=== PATIENT | female | born 1985 | race Caucasian/White ===

== ENCOUNTER 2016-09-01 22:35 | Observation (INO) | payer MEDICARE, MEDICAID ==
[~2016-09-01] VITALS: Ht 172.7 cm; Wt 71.7 kg
[~2016-09-01 22:35] MED LIST: ARIP2TAB3 PO; ESCI5TAB PO
[2016-09-01 23:09] LABS: CLARITY URINE CLOUDY (CLEAR); COLOR URINE DARK YELLOW (YELLOW); GLUCOSE URINE NEGATIVE (NEGATIVE); KETONES URINE 4+ (NEGATIVE); LEUKOCYTE ESTERASE URINE 1+ (NEGATIVE); NITRITE URINE POSITIVE (NEGATIVE); OCCULT BLOOD URINE NEGATIVE (NEGATIVE); PH URINE 5.5 (4.5-8.0); PROTEIN URINE NEGATIVE (NEGATIVE); SPECIFIC GRAVITY URINE 1.024 (1.005-1.030)
[2016-09-01 23:18] LABS: *BARBITURATES SCREEN URINE NEGATIVE (NEGATIVE); *COCAINE SCREEN URINE NEGATIVE (NEGATIVE); METHADONE URINE SCREEN NEGATIVE (NEGATIVE); PHENCYCLIDINE URINE SCREEN NEGATIVE (NEGATIVE)
[2016-09-01 23:23] LABS: *AMPHETAMINES SCREEN URINE PRESUMTIVE POSITIVE (NEGATIVE); *BENZODIAZEPINES SCREEN URINE PRESUMTIVE POSITIVE (NEGATIVE); OPIATES URINE SCREEN PRESUMTIVE POSITIVE (NEGATIVE)
[2016-09-01 23:24] LABS: CANNABINOID URINE SCREEN PRESUMTIVE POSITIVE (NEGATIVE)
[2016-09-01] MEDS ORDERED: CEFAZOLIN 1000MG PREMIX 50 ML IV NR (23:30)
[2016-09-01] MEDS ORDERED: DEXT 5%/LACTATED RINGERS 1,000 ML IV SCH (23:30)
[2016-09-01] MEDS ORDERED: PREN-88 PO (23:58)
[2016-09-02] MEDS ORDERED: BUPR8TAB3 SL (00:03)
[2016-09-02] MEDS ORDERED: LEVE1000 PO (00:06)
[2016-09-02] MEDS ORDERED: TRAZ-132 PO (00:07)
[2016-09-02] MEDS ORDERED: CLON2TAB4 PO (00:18)
[2016-09-08 08:08] LABS: AMPHETAMINE CONF URINE Positive (.); BENZODIAZEPINES CONF GC/MS Positive (.); CANNABINOID CONFIRMATION URINE Positive (.); NORDIAZEPAM Negative (Cutoff=200); OH-ALPRAZOLAM CONF GC/MS 1520 ng/mL (Cutoff=200); OH-ALPRAZOLAM URINE Positive (.); OPIATES CONFIRMATION URINE Positive (.); OXAZEPAM UR Negative (Cutoff=200)
== END 2016-09-02 01:04 | disposition home or self-care (01) ==
LOC: L&D 22:35
PROVIDERS: ADMIT Obstetrics & Gynecology; ATTEND Obstetrics & Gynecology
DX: O44.00 Complete placenta previa NOS or without hemorrhage, unspecified trimester (principal); O99.340 Other mental disorders complicating pregnancy, unspecified trimester; F41.8 Other specified anxiety disorders; F32.9 Major depressive disorder, single episode, unspecified; R10.9 Unspecified abdominal pain; R56.9 Unspecified convulsions; G47.00 Insomnia, unspecified; Z3A.00 Weeks of gestation of pregnancy not specified
CPT/HCPCS: 80305; 80307; 80346; 80349; 80361; 81001; 96365; 99281; G0378; J0690; 96360; 96361

== ENCOUNTER 2016-11-19 05:57 | Observation (INO) | payer MEDICAID, MEDICARE ==
[~2016-11-19] VITALS: Ht 177.8 cm; Wt 73.9 kg
[~2016-11-19 05:57] MED LIST changes: +BUPR8TAB3 SL; +CLON2TAB4 PO; +LEVE1000 PO; +PREN-88 PO; +TRAZ-132 PO
== END 2016-11-19 08:45 | disposition home or self-care (01) ==
LOC: L&D 05:57
PROVIDERS: ADMIT Obstetrics & Gynecology; ATTEND Obstetrics & Gynecology
DX: O40.3XX0 Polyhydramnios, third trimester, not applicable or unspecified (principal); O44.03 Complete placenta previa NOS or without hemorrhage, third trimester; Z3A.35 35 weeks gestation of pregnancy
CPT/HCPCS: 76805; 76818; 76830; 99281; G0378